=== PATIENT | female | born 1950 | race Caucasian/White ===

== ENCOUNTER 2018-11-16 08:55 | Day surgery (SDC) | payer MEDICARE, BC ==
[~2018-11-16] VITALS: Ht 162.6 cm; Wt 87.8 kg
[~2018-11-16 08:55] MED LIST: BIOTIN1 MG PO; Daily Multiple1 EACH PO; Dialyvite 5000 T5 MG PO; JOINT HEALTH T1 EACH PO; Omega-31000 MG PO
[2018-11-16] MEDS ORDERED: THERA-D2000 UNIT (09:36)
--- NOTE | 2018-11-16 10:38 | NUR ---
11/16/18 Caroline Hayes PT AND UPDATED ON DELAY IN HER CASE START TIME DUE TO PREVIOUS CASE RUNNING LONGER THAN EXPECTED. PT DENIES WARM BLANKET. BED IN LOW, LOCKED POSTION, CALL LIGHT IN REACH.
== END 2018-11-16 12:32 | disposition home or self-care (01) ==
LOC: ORSCSDS 08:55
PROVIDERS: Internal Medicine Gastroenterology
PROC: 0DBH8ZX Excision of Cecum, Via Natural or Artificial Opening Endoscopic, Diagnostic (ICD-10-PCS; principal; 2018-11-16 10:15)
PROC: 0DBK8ZX Excision of Ascending Colon, Via Natural or Artificial Opening Endoscopic, Diagnostic (ICD-10-PCS; principal; 2018-11-16 10:15)
DX: Z12.11 Encounter for screening for malignant neoplasm of colon (principal); D12.0 Benign neoplasm of cecum; D12.2 Benign neoplasm of ascending colon; K57.30 Diverticulosis of large intestine without perforation or abscess without bleeding; K64.8 Other hemorrhoids
CPT/HCPCS: 88305; J2704; J7120

== ENCOUNTER 2022-05-07 08:06 | Day surgery (SDC) | payer MEDICARE, BC ==
[~2022-05-07] VITALS: Ht 162.6 cm; Wt 86.2 kg
[~2022-05-07 08:06] MED LIST changes: +THERA-D2000 UNIT
[2022-05-07] MEDS ORDERED: MONT4 (09:34)
--- NOTE | 2022-05-07 10:03 | NUR ---
05/07/22 1003 Velvet Pérez TWO ATTEMPTS AT IV. FIRST ATTEMPT IN R HAND BY JESSICA INFILTRATED. 2ND ATTEMPT IN R FOREARM BY JESSICA SUCESSFUL.
== END 2022-05-07 11:13 | disposition home or self-care (01) ==
LOC: ORSCSDS 08:06
PROVIDERS: Internal Medicine Gastroenterology
PROC: 0DBC8ZX Excision of Ileocecal Valve, Via Natural or Artificial Opening Endoscopic, Diagnostic (ICD-10-PCS; principal; 2022-05-07 10:30)
DX: Z12.11 Encounter for screening for malignant neoplasm of colon (principal); Z86.010 Personal history of colon polyps; D12.0 Benign neoplasm of cecum; K57.30 Diverticulosis of large intestine without perforation or abscess without bleeding; K64.8 Other hemorrhoids
CPT/HCPCS: 88305; J2704; J7120